=== PATIENT | male | born 1980 | race African-American/Black ===

== ENCOUNTER 2018-05-17 09:16 | Emergency (ER) | payer OTHER ==
[~2018-05-17] VITALS: Ht 165.1 cm; Wt 64.0 kg
[2018-05-17 09:23] VITALS: BP 116/70
[2018-05-17] MEDS ORDERED: IBUPROFEN 200 MG TABLET ONE (09:50)
[2018-05-17] MEDS ORDERED: IBUPROFEN 200 MG TABLET PO ONE (10:00)
[2018-05-17 10:38] LABS: MICROSCOPIC INDICATED
[2018-05-17 11:02] LABS: CULTURE INDICATED? NO
== END 2018-05-17 11:51 | disposition home or self-care (01) ==
LOC: ED 10:49
DX: R07.89 Other chest pain (principal); F17.200 Nicotine dependence, unspecified, uncomplicated
CPT/HCPCS: 71046; 74176; 81001; 99285

== ENCOUNTER 2020-05-08 11:08 | Emergency (ER) | payer OTHER ==
[~2020-05-08] VITALS: Ht 165.1 cm; Wt 51.4 kg
[2020-05-08 12:03] LABS: BASOPHILS % (AUTO) 1 % (0-1); EOSINOPHILS % (AUTO) 3 % (1-7); LYMPHOCYTES % (AUTO) 30 % (22-44); MEAN CORPUSCULAR HEMOGLOBIN 30.4 pg (27.5-34.5); MEAN CORPUSCULAR HGB CONC 33.8 g/dL (33.2-36.2); MEAN PLATELET VOLUME 7.2 fL (7.4-10.4); MONOCYTES % (AUTO) 7 % (2-9); NEUTROPHILS % (AUTO) 59 % (42-75); PLATELET COUNT 388 x10^3/uL (130-400); RED BLOOD COUNT 4.73 x10^6/uL (4.38-5.82); RED CELL DISTRIBUTION WIDTH 13.4 % (9.4-14.8)
[2020-05-08 12:08] LABS: ALBUMIN 3.7 g/dL (3.4-5.0); ANION GAP 6 mmol/L (5-15); CALCIUM 8.8 mg/dL (8.5-10.1); CHLORIDE 109 mmol/L (98-107)
[2020-05-08 12:09] LABS: CREATININE 0.88 mg/dL (0.7-1.3)
[2020-05-08 12:15] LABS: MD NO
--- NOTE | 2020-05-08 13:45 | NUR ---
TO ROOM FROM LOBBY. NAD.
--- NOTE | 2020-05-08 13:53 | NUR ---
BREAK RN: PT REPORTS HERNIA ON LEFT GROIN AREA X1 YEAR OR SO, REPORTS IT HAS GOT BIGGER IN AND PAINFUL X1 WEEK.
[2020-05-08 14:05] LABS: MICROSCOPIC AUTO
[2020-05-08 14:23] VITALS: BP 117/67
== END 2020-05-08 14:32 | disposition home or self-care (01) ==
LOC: ED 14:25
DX: K40.90 Unilateral inguinal hernia, without obstruction or gangrene, not specified as recurrent (principal); R10.32 Left lower quadrant pain; F17.210 Nicotine dependence, cigarettes, uncomplicated
CPT/HCPCS: 36415; 80048; 81001; 82040; 85025; 99283; 99406